=== PATIENT | female | born 1995 | race Caucasian/White ===

== ENCOUNTER 2022-08-10 22:35 | Inpatient (IN) ==
[2022-08-10] MEDS ORDERED: LIDOCAINE 1% LOCAL 20 ML VIAL INFIL PRN (22:53)
[2022-08-10] MEDS ORDERED: OXYTOCIN 30 UNITS/500 ML BAG IV PRN (22:53)
--- NOTE | 2022-08-10 23:03 | History & Physical Report ---
Date of Service August 10, 2022 Assessment & Plan (1) Amniotic fluid leaking: Plan: 27-year-old -0-1-1 at 39 weeks of gestation presenting today with amniotic fluid leaking, AmniSure testing is positive, not in active labor, Vital signs stable afebrile, heart rate reassuring, GBS negative, Plan to admit, monitor, labs, Discussed induction of labor at term with PROM, patient desires to wait for 1 to 2 hours, ambulate and then decide, All questions were answered. (2) PROM with onset of labor within 24 hours of rupture: (3) ADHD: (4) Bipolar disease during : (5) Anemia: History of Present Illness Primary Care Provider: NO PCP Patient is a 27-year-old -0-1-1 at 39 weeks of gestation who felt a big gush of fluid leakage at home while standing about an hour ago. It was clear but did not continue. She denies vaginal bleeding, contractions, fever, chills, abdominal pain. She reports good movements. Her has been complicated by, 1. Smoker, smokes nicotine with vape, 2. History of bipolar disorder, takes Lamictal daily, 3. History of ADHD, takes Adderall, 4. Maternal anemia, takes iron Allergies Allergy/AdvReac Type Severity Reaction Status Date / Time No Known Allergies Allergy Unverified 08/10/22 22:54 Home Medications Medication Instructions Recorded Confirmed Type prenat.vits,mellisa,[id number] 1 tab PO DAILY #30 tabs 12/08/21 08/10/22 Rx dextroamphetamine-amphetamine 15 15 mg PO DAILY 08/10/22 08/10/22 History mg tablet (Adderall) ferrous sulfate 325 mg (65 mg 325 mg PO BID 08/10/22 08/10/22 History iron) tablet (Iron (ferrous sulfate)) lamotrigine 50 mg tablet,extended 50 mg PO DAILY 08/10/22 08/10/22 History release 24 hr omeprazole 20 mg capsule,delayed 20 mg PO DAILY 08/10/22 08/10/22 History release Patient History Medical History No pertinent past medical history Surgical History No pertinent past surgical history Social History Smoking Status: Current every day smoker Tobacco Type: E-cigarettes / Vaping Preferred Language: [place]ian Feels Safe at Home: Yes OB History Full-term in 2013, male infant, 5 pound 15 ounce, She had 1 [employer] History No history of STDs, no history of chlamydia, gonorrhea, herpes Review of Systems as per Subjective / HPI Physical Exam Constitutional: WD/WN, vitals as above well developed, + obese and comfortable Genitourinary: normal external appearance OB Exam Abdomen: + vertex Manual OB Exam: + cervical dilation 3 cm, + cervical effacement 50% and + station -2 OB Exam Monitor Tracing: + external uterine monitor used and + category I AmniSure positive Results & Data Vital Signs (Past 12 Hours) Vital Signs Pulse BP 08/10/22 22:46 110 H 140/77
[2022-08-10] MEDS: LACTATED RINGER'S 1,000 ML IV PRN (23:25)
[2022-08-10 23:39] LABS: Hematocrit (blood only) 35.9 % (37.0-47.0); Hemoglobin 12.3 g/dl (12.0-16.0); Mean Corpuscular Hemoglobin 29.8 pg (25.0-34.0); Mean Corpuscular Hgb Conc 34.3 g/dL (32.0-36.0); Mean Corpuscular Volume 86.9 fL (80.0-100.0); Mean Platelet Volume 9.9 fL (9.4-12.4); Platelet Count 276 K/uL (130-400); RDW Coefficient of Variation 13.2 % (11.5-14.5); RDW Standard Deviation 41.5 fL (36.4-46.3); Red Blood Count 4.13 M/uL (4.20-5.40); White Blood Count 13.18 K/ul (4.8-10.8)
[2022-08-10 23:40] LABS: Alanine Aminotransferase 8 U/L (7-52); Albumin Globulin Ratio 1.1 (0.9-2); Albumin Level 3.4 gm/dl (3.4-5.0); Alkaline Phosphatase 97 U/L (34-104); Anion Gap 11 (3-11); Aspartate Aminotransferase 13 U/L (13-39); BUN Creatinine Ratio 23.6 (10-20); Bilirubin,Total 0.2 mg/dl (0.2-1.0); Blood Urea Nitrogen 13 mg/dl (6-23); Calcium 8.6 mg/dl (8.6-10.3); Carbon Dioxide 20 mmol/L (21-32); Chloride 104 mmol/L (98-107); Creatinine Clr Calc Pharmacy 160.5 ml/min; Est GFR (African American) > 150.0 ml/min; Est GFR (Non-African American) 129.5 ml/min; Glucose 117 mg/dl (70-99(Fasting)); Potassium 3.7 mmol/L (3.5-5.1); Sodium 135 mmol/L (136-145); Total Protein 6.4 gm/dl (6.0-8.3)
--- NOTE | 2022-08-11 00:29 | Obstetrical Progress Note ---
Date of Service August 11, 2022 Assessment & Plan Admission and Anticipated Discharge Date Admission Date: August 10, 2022 Subjective Patient has been walking in hallways for about half an hour. No pain, seems c omfortable She is waiting for her mom to come in before she decides for anything. Continue to monitor Results & Data Vital Signs (Past 12 Hours) Vital Signs Temp Pulse Resp BP 08/10/22 22:59 36.8 C 18 08/10/22 23:58 18 08/10/22 23:58 36.9 C 18 08/10/22 22:46 110 H 140/77
--- NOTE | 2022-08-11 02:47 | Obstetrical Progress Note ---
Date of Service August 11, 2022 Assessment & Plan Admission and Anticipated Discharge Date Admission Date: August 10, 2022 Subjective Patient feels about the same, no pain nor ctxs FHR categ I She still desires expectant management for another 2-3 hours, s okay with PO Cytotec if no change Declined Oxytocin Continue to monitor closely. Results & Data Vital Signs (Past 12 Hours) Vital Signs Temp Pulse Resp BP 08/10/22 22:59 36.8 C 08/11/22 02:14 18 08/11/22 02:14 36.8 C 18 08/10/22 23:58 18 08/10/22 23:58 36.9 C 08/10/22 22:46 110 H 140/77
[2022-08-11] MEDS ORDERED: miSOPROStoL 50 MCG TAB PO SCH (05:00)
[2022-08-11] MEDS ORDERED: BUPIVACAINE 0.25% PF 30 ML VIAL ONE (09:27)
[2022-08-11] MEDS ORDERED: ePHEDrine sulfate 50 MG/ML AMP ONE (09:27)
[2022-08-11] MEDS ORDERED: LIDOCAINE 2%/EPINEPHRINE 1:200,000 20 ML PF ONE (09:27)
[2022-08-11] MEDS ORDERED: fentaNYL citrate PF 100 MCG/2 ML VIAL ONE (09:27)
[2022-08-11] MEDS ORDERED: SODIUM CHLORIDE 0.9% PF INJ 10 ML VIAL ONE (09:27)
[2022-08-11] MEDS ORDERED: fentaNYL 2MCG/ML ROPIVACAINE 1.25MG/ML 100 ML BAG EPI ONE (09:28)
[2022-08-11] MEDS: LACTATED RINGER'S 1,000 ML IV PRN ×2 (09:41→10:49)
--- NOTE | 2022-08-11 09:48 | Anesthesiology Consultation ---
Date of Service August 11, 2022 Assessment & Plan Chart Review Chart Review: Acceptable Risk for Surgery, Patient NOT seen in Pre Admission Testing and Acceptable Risk for Labor Epidural Consults Requested none ASA ASA3 Proposed Anesthesia Anesthesia Type: Labor Epidural and CSE History Height/Weight Height: 5 ft Weight: 95.708 kg Allergies Allergy/AdvReac Type Severity Reaction Status Date / Time latex Allergy Mild Rash Verified 08/11/22 06:54 Medications Home Medications Medication Instructions Recorded Confirmed Last Taken prenat.vits,mellisa,[id number] 1 tab PO DAILY #30 tabs 12/08/21 08/10/22 Unknown dextroamphetamine-amphetamine 15 15 mg PO DAILY 08/10/22 08/10/22 08/10/22 08:00 mg tablet (Adderall) ferrous sulfate 325 mg (65 mg 325 mg PO BID 08/10/22 08/10/22 Unknown iron) tablet (Iron (ferrous sulfate)) lamotrigine 50 mg tablet,extended 50 mg PO DAILY 08/10/22 08/10/22 08/10/22 08:00 release 24 hr omeprazole 20 mg capsule,delayed 20 mg PO DAILY 08/10/22 08/10/22 08/10/22 release 0800 Active Medications Generic Name Dose Route Start Last Admin Trade Name Freq PRN Reason Stop Dose Admin Lactated Ringer's 1,000 mls @ 150 mls/hr 08/10/22 22:53 08/11/22 09:41 Lr IV 08/12/22 22:52 999 mls/hr .[id number] PRN Administration L&D Protocol Protocol Misoprostol 50 mcg 08/11/22 05:00 08/11/22 05:02 Misoprostol 50 Mcg Tab PO 09/10/22 04:59 50 mcg Q4 OMER Administration Past Medical History Medical History ADHD Bipolar 1 disorder No pertinent past medical history Exercise / Class Metabolic Activity II 4-5 Yardwork/Stairs/Walk up hill Past Surgical History Surgical History No pertinent past surgical history Past Anesthesia History No Hx of Anesthesia Complications and No Family Hx of Anesthesia Complications History of PONV No Hx of PONV and No Hx of Motion Sickness Social History Smoking Status: Current every day smoker tobacco type: e-cigarettes Hx Alcohol Use: No Hx Substance Use: No Physical Exam Vital Signs Last Vital Signs Temp 36.5 C 08/11/22 09:01 Pulse 92 H 08/11/22 09:46 Resp 18 08/11/22 07:00 BP 122/74 08/11/22 09:37 Pulse Ox 99 08/11/22 09:46 Testing Laboratory Results 08/10/22 23:07 08/10/22 23:07
[2022-08-11] MEDS ORDERED: PROMETHAZINE HCL 25 MG in SODIUM CHLORIDE 0.9% 50 ML IV PRN (10:32)
[2022-08-11] MEDS ORDERED: ePHEDrine sulfate 50 MG/ML AMP IV PRN (10:32)
[2022-08-11] MEDS ORDERED: fentaNYL 2MCG/ML ROPIVACAINE 1.25MG/ML 100 ML BAG EPI PRN (10:32)
[2022-08-11] MEDS ORDERED: ONDANSETRON INJ 2 MG/ML 2 ML VIAL IV PRN (10:32)
[2022-08-11] MEDS ORDERED: NALOXONE HCL 0.4 MG/1 ML VIAL/CARP IV PRN (10:32)
[2022-08-11] MEDS ORDERED: NALOXONE HCL 1 MG in SODIUM CHLORIDE 0.9% 1000ML 1,000 ML IV PRN (10:32)
[2022-08-11] MEDS ORDERED: diphenhydrAMINE 50 MG/ML VIAL IV PRN (10:32)
[2022-08-11] MEDS ORDERED: NALBUPHINE HCL INJ 10 MG/ML AMP IV PRN (10:32)
[2022-08-11] MEDS ORDERED: OXYTOCIN 30 UNITS/500 ML BAG IV PRN ×2 (13:11→14:33)
--- NOTE | 2022-08-11 13:11 | Obstetrical Progress Note ---
Date of Service August 11, 2022 Assessment & Plan (1) PROM with onset of labor within 24 hours of rupture: Plan: Pt doing well No complaints Epidural analgesia FHR: CAT1 Ctx; irregular VE; 5-6/-1 discussed Pitocin augmentation 'pt is agreeable will proceed with Pitocin augmentation Admission and Anticipated Discharge Date Admission Date: August 10, 2022 Results & Data Vital Signs (Past 12 Hours) Vital Signs Temp Pulse Resp BP Pulse Ox 08/11/22 07:00 36.5 C 18 08/11/22 07:00 18 08/11/22 13:06 101 H 99 08/11/22 13:01 93 H 96 08/11/22 13:02 99 H 101/55 L 08/11/22 12:56 94 H 97 08/11/22 12:51 92 H 97 08/11/22 12:46 95 H 96 08/11/22 12:47 96 H 95/50 L 08/11/22 12:41 88 96 08/11/22 12:36 98 H 96 08/11/22 12:30 18 08/11/22 12:30 18 08/11/22 12:31 86 97 08/11/22 12:32 85 102/57 L 08/11/22 12:26 101 H 98 08/11/22 12:21 100 H 99 08/11/22 12:17 93 H 114/68 08/11/22 12:16 97 H 98 08/11/22 12:11 105 H 99 08/11/22 12:06 93 H 98 08/11/22 12:02 88 111/62 08/11/22 12:01 94 H 97 08/11/22 11:56 87 97 08/11/22 11:51 93 H 97 08/11/22 11:47 97 H 106/66 08/11/22 11:46 89 97 08/11/22 11:41 91 H 96 08/11/22 11:36 94 H 97 08/11/22 11:31 95 H 97 08/11/22 11:32 100 H 105/64 08/11/22 11:30 18 08/11/22 11:30 18 08/11/22 11:26 95 H 96 08/11/22 11:21 104 H 97 08/11/22 11:18 90 106/61 08/11/22 11:16 98 H 98 08/11/22 11:11 96 H 99 08/11/22 11:06 99 H 99 08/11/22 11:00 18 08/11/22 11:00 36.5 C 18 08/11/22 11:01 101 H 100 08/11/22 11:02 101 H 100/50 L 08/11/22 10:56 99 H 100 08/11/22 10:52 106 H 118/59 L 08/11/22 10:51 107 H 100 08/11/22 10:46 116 H 18 100 08/11/22 10:29 16 08/11/22 10:29 16 08/11/22 10:45 109 H 111/56 L 08/11/22 10:43 116 H 121/57 L 08/11/22 10:41 108 H 113/58 L 100 08/11/22 10:39 108 H 96/55 L 08/11/22 10:37 112 H 98/57 L 08/11/22 10:36 115 H 18 100 08/11/22 10:35 98 H 100/58 L 08/11/22 10:32 16 90/50 L 08/11/22 10:31 100 08/11/22 10:31 105 H 08/11/22 10:31 111 H 92/50 L 08/11/22 10:28 104 H 109/63 08/11/22 10:26 109 H 111/68 100 08/11/22 10:25 95 H 120/73 08/11/22 10:23 98 H 125/63 08/11/22 10:21 105 H 99 08/11/22 10:16 88 100 08/11/22 10:11 95 H 100 08/11/22 10:08 99 H 160/80 H 08/11/22 10:06 98 H 98 08/11/22 10:01 92 H 100 08/11/22 09:56 93 H 97 08/11/22 09:52 88 125/75 08/11/22 09:51 97 H 99 08/11/22 09:46 92 H 99 08/11/22 09:41 90 98 08/11/22 09:37 90 122/74 08/11/22 09:36 90 97 08/11/22 09:31 94 H 97 08/11/22 09:26 85 96 08/11/22 09:21 96 H 98 08/11/22 09:01 36.5 C 08/11/22 09:16 99 08/11/22 09:16 85 08/11/22 09:16 85 132/76 08/11/22 09:11 89 98 08/11/22 08:57 86 121/73 08/11/22 07:05 83 109/68 08/11/22 04:31 18 08/11/22 04:31 36.8 C 18 08/11/22 05:03 97 H 115/58 L 08/11/22 02:14 18 08/11/22 02:14 36.8 C 18
[2022-08-11] MEDS ORDERED: ACETAMINOPHEN 500 MG TAB PO ONE (13:19)
[2022-08-11] MEDS ORDERED: miSOPROStoL 200 MCG TAB ONE (14:25)
[2022-08-11] MEDS ORDERED: METHYLERGONOVINE MALEATE 0.2 MG/ML AMP IM ONE (14:33)
[2022-08-11] MEDS ORDERED: bisacodyL 10 MG SUPP PR PRN (14:33)
[2022-08-11] MEDS ORDERED: DIPHTHERIA/TETANUS/PERTUSSIS 0.5mL SYR/VIAL (Age 7+yrs) IM ONE (14:33)
[2022-08-11] MEDS ORDERED: HYDROCORTISONE ACETATE 25 MG SUPP PR PRN (14:33)
[2022-08-11] MEDS ORDERED: BENZOCAINE 20% AER SPR 82.5 GM CAN EXT PRN (14:33)
[2022-08-11] MEDS ORDERED: miSOPROStoL 200 MCG TAB PR ONE (14:33)
--- NOTE | 2022-08-11 15:14 | Anesthesia Procedure Note ---
Date of Service August 11, 2022 Anesthesia Post Epidural Note Vital Signs Vital Signs: Temp Pulse Resp BP Pulse Ox 37.0 C 103 H 18 138/90 98 08/11/22 14:30 08/11/22 15:02 08/11/22 15:00 08/11/22 15:02 08/11/22 14:26 Pain Intensity Lower Abdomen: Pain Intensity: 3 Notes Mental Status: alert / awake / arousable Nausea / Vomiting: adequately controlled Pain: adequately controlled Airway Patency, RR, SpO2: stable & adequate BP & HR: stable & adequate Hydration State: stable & adequate Neuraxial Anesthesia: was administered and sensory block is resolving Anesthetic Complications: no major complications apparent Epidural: Removed without complications and With tip intact
[2022-08-11] MEDS: IBUPROFEN 600 MG TAB PO PRN ×2 (16:10→19:55)
[2022-08-11] MEDS: DOCUSATE SODIUM 100 MG CAP PO SCH (20:36)
[2022-08-11] MEDS: ACETAMINOPHEN 325 MG TAB PO PRN (22:36)
[2022-08-12] MEDS ORDERED: miSOPROStoL 200 MCG TAB ONE (01:49)
[2022-08-12] MEDS ORDERED: METHYLERGONOVINE MALEATE 0.2 MG/ML AMP ONE (01:50)
[2022-08-12] MEDS: ACETAMINOPHEN 325 MG TAB PO PRN ×2 (05:19→14:50)
[2022-08-12 07:14] LABS: Hematocrit (blood only) 37.5 % (37.0-47.0); Hemoglobin 12.8 g/dl (12.0-16.0); Mean Corpuscular Hemoglobin 29.2 pg (25.0-34.0); Mean Corpuscular Hgb Conc 34.1 g/dL (32.0-36.0); Mean Corpuscular Volume 85.6 fL (80.0-100.0); Mean Platelet Volume 10.2 fL (9.4-12.4); Platelet Count 251 K/uL (130-400); RDW Coefficient of Variation 13.1 % (11.5-14.5); RDW Standard Deviation 41.1 fL (36.4-46.3); Red Blood Count 4.38 M/uL (4.20-5.40); White Blood Count 16.26 K/ul (4.8-10.8)
[2022-08-12] MEDS ORDERED: PRENATAL VITAMIN 1 TAB PO SCH (08:00)
[2022-08-12] MEDS: IBUPROFEN 600 MG TAB PO PRN ×2 (08:18→12:21)
[2022-08-12] MEDS: DOCUSATE SODIUM 100 MG CAP PO SCH (08:18)
--- NOTE | 2022-08-12 09:03 | Obstetrical Progress Note ---
Date of Service August 12, 2022 Assessment & Plan (1) Normal course: PPD #1 pt doing well d/c home with instructions Results & Data Vital Signs (Past 12 Hours) Vital Signs Temp Pulse Resp BP Pulse Ox O2 Del Method 08/12/22 08:09 36.4 C L 87 20 119/75 08/12/22 03:39 36.5 C 77 18 100/65 96 Room Air 08/11/22 22:56 36.9 C 81 18 119/68 96 Room Air
[2022-08-12] MEDS ORDERED: bisacodyL 5 MG TABEC PO SCH (20:00)
--- NOTE | 2022-08-13 07:58 | Delivery Summary ---
DELIVERY NOTE: The patient delivered a live infant male in left occiput anterior presentation. Ther e was no nuchal cord. Infant was delivered and placed on mother's abdomen. Delayed cord clamp was p erformed. Cord blood was obtained. Placenta was spontaneously delivered. Inspection of the placent a shows a normal looking placenta with 3-vessel cord. Inspection of the perineum showed a first-degree midline laceration tear, which was repaired with 2-0 Vicryl. Rest of the perineum was unremarkable. Estimated blood loss was 450 mL. All instruments were removed from the vagina and accounted for x2 in cluding retractors, laps and sutures. The patient is sent to recovery in stable condition. Job ID: [id number]
== END 2022-08-12 17:30 | disposition home or self-care (01) | DRG 807 ==
LOC: OPB 22:35 → 4S1 22:37 → 4E2 08-11 17:16